=== PATIENT | female | born 1995 | race Two or more races ===

== ENCOUNTER 2022-01-01 18:52 | Emergency (ER) | payer SELFPAY ==
[~2022-01-01] VITALS: Ht 154.9 cm; Wt 75.0 kg
[2022-01-01 19:01] VITALS: BP 122/79
[2022-01-01] MEDS ORDERED: CEPH-585 PO (19:46)
[2022-01-01] MEDS ORDERED: IBUP-1986 PO (19:46)
[2022-01-01] MEDS ORDERED: ketorolac trometh inj. 60 MG/2 ML VIAL IM ONE (19:50)
[2022-01-01] MEDS ORDERED: cephalexin 250mg capsule PO ONE (19:50)
== END 2022-01-01 20:06 | disposition home or self-care (01) ==
LOC: ER 18:53
DX: K11.20 Sialoadenitis, unspecified (principal); Z79.1 Long term (current) use of non-steroidal anti-inflammatories (NSAID); Z79.2 Long term (current) use of antibiotics; Z79.899 Other long term (current) drug therapy
CPT/HCPCS: 96372; 99283; J1885